=== PATIENT | female | born 1970 ===

== ENCOUNTER 2017-12-20 10:43 | Emergency (ER) | payer SELFPAY ==
[2017-12-20 10:46] VITALS: BP 144/83; PULSE 84; RESP 17; TEMP 898.4; O2SAT 99
--- NOTE | 2017-12-20 11:18 | ED PDOC ---
HPI: Back Time Seen by Provider: 12/20/17 11:11 Chief Complaint (Nursing): Back Pain Chief Complaint (Provider): low back pain History Per: Patient Additional Complaint(s): 47-year-old female with no past medical history presents to emergency department with left-sided lower back pain that radiates down her left leg ongoing for 3 days. Patient denies fall or trauma. She did not take any medicine for pain relief. No associated bowel or bladder dysfunction. PMD: none Past Medical History Reviewed: Historical Data, Nursing Documentation, Vital Signs Vital Signs: Last Vital Signs Temp 898.4 F H 12/20/17 10:46 Pulse 84 12/20/17 10:46 Resp 17 12/20/17 10:46 BP 144/83 12/20/17 10:46 Pulse Ox 99 12/20/17 10:46 - Medical History PMH: No Chronic Diseases - Surgical History Other surgeries: tubal ligation - Family History Family History: States: No Known Family Hx - Living Arrangements Living Arrangements: With Family - Social History Current smoker - smoking cessation education provided: No Alcohol: Social Drugs: Denies - Home Medications Home Medications: Ambulatory Orders Medication Instructions Recorded Cyclobenzaprine [Cyclobenzaprine 10 mg PO TID PRN #20 tab 12/20/17 HCl] Naproxen [Naprosyn] 500 mg PO BID #20 tab 12/20/17 - Allergies Allergies/Adverse Reactions: Allergies Allergy/AdvReac Type Severity Reaction Status Date / Time No Known Allergies Allergy Verified 12/20/17 11:40 Review of Systems ROS Statement: Except As Marked, All Systems Reviewed And Found Negative Constitutional: Negative for: Fever Cardiovascular: Negative for: Chest Pain Respiratory: Negative for: Cough Gastrointestinal: Negative for: Nausea, Vomiting Genitourinary Female: Negative for: Dysuria, Frequency, Incontinence, Hematuria , Vaginal Discharge, Vaginal Bleeding Musculoskeletal: Positive for: Back Pain, Leg Pain (left) Physical Exam - Reviewed Nursing Documentation Reviewed: Yes Vital Signs Reviewed: Yes - Physical Exam Appears: Positive for: Well, Non-toxic, No Acute Distress Skin: Positive for: Normal Color. Negative for: Rash Cardiovascular/Chest: Positive for: Regular Rate, Rhythm Respiratory: Positive for: Normal Breath Sounds. Negative for: Respiratory Distress Gastrointestinal/Abdominal: Positive for: Soft. Negative for: Tenderness Back: Positive for: Vertebral Tenderness (Muscle spasm and tenderness left lower lumbar region), Other (Left leg straight leg raise elicits pain at 30). Negative for: L CVA Tenderness, R CVA Tenderness Extremity: Positive for: Normal ROM. Negative for: Pedal Edema Neurologic/Psych: Positive for: Alert, Oriented - Laboratory Results Urine POC: Negative Urine dip results: Negative for: Leukocyte Esterase, Blood, Nitrate, Ketones, Glucose, Bilirubin, Protein - ECG O2 Sat by Pulse Oximetry: 99 Pulse Ox Interpretation: Normal - Other Rad LS Spine X-ray X-Ray: Interpreted by Me, Viewed By Me X-Ray Interpretation: no fx, no dis Medical Decision Making Medical Decision Makin47 year old with low back pain Plan: Urine dip and test LS Spine X-ray IM toradol PO flexeril and tylenol Patient reports improvement to pain after meds given. She is aware of all diagnostic testing results, all questions answered. Patient given Naprosyn and Flexeril prescriptions and was referred to clinic for follow up. Disposition - Clinical Impression Clinical Impression: Low back pain, Back strain - Patient ED Disposition Is Patient to be Admitted: No Counseled Patient/Family Regarding: Studies Performed, Diagnosis, Need For Followup, Rx Given - Disposition Referrals: [facility] [Outside] Disposition: Routine/Home Disposition Time: 12:41 Condition: IMPROVED Additional Instructions: Take prescription medications as directed as needed for pain. Rest and avoid heavy lifting. Follow up with clinic in 2-3 days Prescriptions: Cyclobenzaprine [Cyclobenzaprine HCl] 10 mg PO TID PRN #20 tab PRN Reason: Muscle Spasm Naproxen [Naprosyn] 500 mg PO BID #20 tab Instructions: Low Back Pain in Adults, Muscle Strain, Back Exercises Forms: [employer] (Northern Irish), [facility] ED School/Work Excuse Print Language: [id number]
--- NOTE | 2017-12-20 12:26 | RAD ---
PROCEDURE: Radiographs of the Lumbar Spine. HISTORY: Back pain COMPARISON: No prior. FINDINGS: BONES: There is normal alignment of the lumbar vertebral bodies. There is normal lumbar lordosis. There is no acute fracture, spondylolysis or spondylolisthesis. Bone mineralization is normal. DISC SPACES: There is mild degenerative disc disease at L4-5 and L5-S1 with mild reduced disc heights, anterior spurring with facet arthropathy, worse at L5-S1. OTHER FINDINGS: There are no pathologic soft tissue calcifications. Both sacroiliac joints are normal. IMPRESSION: No acute fracture, spondylolysis or spondylolisthesis. Mild degenerative disc disease in the lower lumbar spine, worse at L5-S1.
== END 2017-12-20 13:01 | disposition home or self-care (01) ==
LOC: H.ER 10:43
DX: M54.5 Low back pain (principal); M51.36 Other intervertebral disc degeneration, lumbar region; M51.37 Other intervertebral disc degeneration, lumbosacral region
CPT/HCPCS: 72100; 81025; 96372; 99282; J1885

== ENCOUNTER 2018-09-04 14:31 | Emergency (ER) | payer OTHER ==
[2018-09-04 14:45] VITALS: RESP 18; TEMP 98.7
--- NOTE | 2018-09-04 14:59 | ED PDOC ---
HPI: Back Time Seen by Provider: 09/04/18 14:45 Chief Complaint (Nursing): Back Pain Chief Complaint (Provider): Back Pain History Per: Patient History/Exam Limitations: no limitations Onset/Duration Of Symptoms: Days (x4) Current Symptoms Are (Timing): Still Present Additional Complaint(s): Patient is a 48 y/o female with no significant PMHx who presents to the ED for evaluation of recurrent back pain ongoing for the past four days. Patient reports to have experienced similar pain in the past. Patient claims pain radiates from her lower, central back to abdomen and right thigh. Patient denies any trauma, fever, chills, night sweats, numbness or tingling in foot, and weakness. Patient states she has been drinking tea but has not taken any medication for relief. PCP: None Provided Past Medical History Reviewed: Historical Data, Nursing Documentation, Vital Signs Vital Signs: Last Vital Signs Temp 98.7 F 09/04/18 14:43 Pulse 76 09/04/18 14:43 Resp 18 09/04/18 14:43 BP 127/74 09/04/18 14:43 Pulse Ox 100 09/04/18 14:43 - Medical History PMH: No Chronic Diseases Denies: Diabetes, HTN, Hyperlipidemia - Surgical History Surgical History: No Surg Hx - Family History Family History: States: No Known Family Hx - Home Medications Home Medications: Ambulatory Orders Medication Instructions Recorded Cyclobenzaprine [Cyclobenzaprine 10 mg PO TID PRN #20 tab 12/20/17 HCl] Naproxen [Naprosyn] 500 mg PO BID #20 tab 12/20/17 Acetaminophen [Tylenol] 650 mg PO Q6 PRN 7 Days capsule 09/04/18 Cyclobenzaprine [Cyclobenzaprine 10 mg PO Q8 PRN 5 Days tab 09/04/18 HCl] Ibuprofen [Motrin Tab] 800 mg PO Q6 PRN 7 Days tab 09/04/18 Lidocaine 5% [Lidoderm] 1 ea TD DAILY PRN 5 Days patch 09/04/18 - Allergies Allergies/Adverse Reactions: Allergies Allergy/AdvReac Type Severity Reaction Status Date / Time No Known Allergies Allergy Verified 09/04/18 14:43 Review of Systems ROS Statement: Except As Marked, All Systems Reviewed And Found Negative Constitutional: Negative for: Fever, Chills, Sweats (night), Weakness Gastrointestinal: Positive for: Abdominal Pain (radiating from back) Musculoskeletal: Positive for: Back Pain (lower, central), Leg Pain (right thigh radiating from back) Neurological: Negative for: Numbness (or tingling in foot) Physical Exam - Reviewed Nursing Documentation Reviewed: Yes Vital Signs Reviewed: Yes - Physical Exam Appears: Positive for: Uncomfortable Head Exam: Positive for: ATRAUMATIC, NORMAL INSPECTION, NORMOCEPHALIC Pulses-Dorsalis Pedis (R): 2+ Gastrointestinal/Abdominal: Positive for: Normal Exam, Soft. Negative for: Tenderness, Mass, Guarding, Rebound Back: Positive for: Normal Inspection (decreased ROM flexion and extension in back; pain with flexion of right hip), Vertebral Tenderness (Pain on palpation of right buttock). Negative for: Other (Ecchymosis, swelling, or erythema) Extremity: Positive for: Normal ROM (with flexion and extension of left hip and bilateral knees) Neurologic/Psych: Positive for: Alert, Oriented - ECG O2 Sat by Pulse Oximetry: 100 (RA) Pulse Ox Interpretation: Normal Medical Decision Making Medical Decision Making: Time: 1514 Plan: Flexeril 10 mg PO Toradol 30 mg PO Urine Dip Urine Reevaluation Time: 162 Patient continues to complain of pain. Given Lidoderm patch and Tylenol 650mg PO. Time: 1714 Patient has been reassessed. Patient states pain has slightly improved. Patient is able to ambulate and has stable vital signs. Patient will be discharged home with a prescription for Tylenol, Lidoderm patch, and Ibuprofen. Scribe Attestation: Documented by Jorge Campos, acting as a scribe for Carmen MERCEDES. Provider Scribe Attestation: All medical record entries made by the Scribe were at my direction and personally dictated by me. I have reviewed the chart and agree that the record accurately reflects my personal performance of the history, physical exam, medical decision making, and the department course for this patient. I have also personally directed, reviewed, and agree with the discharge instructions and disposition. Disposition - Clinical Impression Clinical Impression: Low back pain - Patient ED Disposition Is Patient to be Admitted: No Counseled Patient/Family Regarding: Studies Performed, Diagnosis, Need For Followup, Rx Given - Disposition Referrals: [facility] [Outside] Disposition: Routine/Home Disposition Time: 17:20 Condition: STABLE Additional Instructions: Take Flexeril, Ibuprofen, Tylenol and Lidoderm patch as needed for pain. F/u with primary care doctor for further pain management. Return to ER if you are unable to walk due to weakness, severe pain or fevers. Prescriptions: Acetaminophen [Tylenol] 650 mg PO Q6 PRN 7 Days capsule PRN Reason: Pain, Moderate (4-7) Cyclobenzaprine [Cyclobenzaprine HCl] 10 mg PO Q8 PRN 5 Days tab PRN Reason: Pain, Moderate (4-7) Ibuprofen [Motrin Tab] 800 mg PO Q6 PRN 7 Days tab PRN Reason: Pain, Moderate (4-7) Lidocaine 5% [Lidoderm] 1 ea TD DAILY PRN 5 Days patch PRN Reason: Pain, Moderate (4-7) Instructions: Low Back Pain (DC) Forms: [employer] (M[place]) Print Language: OCCITAN
[2018-09-04] MEDS ORDERED: Lidocaine 5% Patch TD STA (16:24)
[2018-09-04] MEDS ORDERED: Lidocaine 5% Patch TD ONE (16:32)
[2018-09-04 17:14] VITALS: BP 126/76; PULSE 64
[2018-09-04 17:22] VITALS: O2SAT 100
== END 2018-09-04 17:34 | disposition home or self-care (01) ==
LOC: H.ER 14:31
DX: M54.5 Low back pain (principal)
CPT/HCPCS: 81025; 96372; 99283; J1885